=== PATIENT | female | born 1995 | race African-American/Black ===

== ENCOUNTER 2018-10-29 13:31 | Emergency (ER) | payer OTHER ==
--- NOTE | 2018-10-29 14:00 | ED Physician Documentation ---
PD HPI LOWER EXT INJURY - Stated complaint Stated Complaint: LT TOE PX - Chief complaint Chief Complaint: Ext Problem - History obtained from History obtained from: Patient - History of Present Illness PD HPI LOW EXT INJURY LOCATION: Left, Toe (4th and 5th) Type of injury: Fall Where injury occurred: Home Timing - onset: How many hours ago (2) Timing - duration: Hours (2) Timing - details: Abrupt onset Pain level max: 7 Pain level now: 5 Improved by: Rest Worsened by: Moving, Palpating Associated symptoms: No: Weakness, Numbness, Tingling, Swelling, Discolored Recently seen: Not recently seen Review of Systems : denies: Now EGA Neurologic: denies: Numbness PD PAST MEDICAL HISTORY - Past Medical History Past Medical History: No - Past Surgical History 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, 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 - Present Medications Home Medications: Ambulatory Orders Medication Instructions Recorded Confirmed Ibuprofen [Motrin] 800 mg PO Q8H PRN #30 tablet 10/29/18 - Allergies Allergies/Adverse Reactions: Allergies Allergy/AdvReac Type Severity Reaction Status Date / Time No Known Drug Allergies Allergy Verified 10/29/18 13:39 - Social History Does the pt smoke?: No Smoking Status: Never smoker Does the pt drink ETOH?: Yes Does the pt have substance abuse?: No - Immunizations Immunizations are current?: Yes PD ED PE NORMAL - Vitals Vital signs reviewed: Yes - General General: Alert and oriented X 3, No acute distress, Well developed/nourished - HEENT HEENT: Moist mucous membranes - Neck Neck: Supple, no meningeal sign - Derm Derm: Warm and dry - Extremities Extremities: Other (Left foot - Tender to palpation over the left fourth and fifth toes. No swelling. Neurovascular intact. No deformity. Also mild tenderness over the distal aspect of the fourth and fifth metatarsals. Otherwise normal exam of the foot and ankle) - Neuro Neuro: Alert and oriented X 3 - Psych Psych: Normal mood, Normal affect Results - Vitals Vitals: Vital Signs - 24 hr 10/29/18 10/29/18 13:38 15:46 Temperature 36.9 C Heart Rate 74 90 Respiratory 16 16 Rate Blood Pressure 115/61 108/58 L O2 Saturation 100 98 Oxygen O2 Source Room air - Rads (name of study) Left foot x-ray Radiology: Prelim report reviewed, EMP read contemporaneously, See rad report (Subtle minimally displaced fifth proximal phalangeal fracture is seen with surrounding soft tissue swelling. ) PD MEDICAL DECISION MAKING - ED course Complexity details: reviewed results, considered differential, d/w patient ED course: 23-year-old female presents to the emergency department with a left fifth toe fracture. Discussed dalia taping versus postop shoe versus both. She elects for a postop shoe at this time. Patient counseled regarding signs and symptoms for which I believe and urgent re-evaluation would be necessary. Patient with good understanding of and agreement to plan and is comfortable going home at this time This document was made in part using voice recognition software. While efforts are made to proofread this document, sound alike and grammatical errors may occur. Departure - Departure Disposition: 01 Home, Self Care Clinical Impression: Fracture of fifth toe, left, closed Qualifiers: Encounter type: initial encounter Qualified Code(s): S92.502A - Displaced unspecified fracture of left lesser toe(s), initial encounter for closed fracture Condition: Good Instructions: ED Fx Toe Closed Follow-Up: YOAN YEPEZ MD [Primary Care Provider] - Within 1 week Prescriptions: Ibuprofen [Motrin] 800 mg PO Q8H PRN #30 tablet PRN Reason: PAIN &/OR FEVER Comments: You have a 5th toe fracture today. This will heal on it's own. Return if you worsen. Follow up with your doctor in 1 week for repeat evaluation. Discharge Date/Time: 10/29/18 15:45
--- NOTE | 2018-10-29 15:18 | XRAY Report ---
Reason: L 4th and 5th toe pain s/p fall Procedure Date: 10/29/2018 Accession Number: [id number] / [id number] Procedure: XR - Foot 3 View LT CPT Code: FULL RESULT: EXAM: LEFT FOOT RADIOGRAPHY EXAM DATE: 10/29/2018 02:28 PM. CLINICAL HISTORY: L 4th and 5th toe pain s/p fall. COMPARISON: None. TECHNIQUE: 3 views. FINDINGS: Bones: Subtl minimally displaced oblique fracture of the distal aspect of the fifth proximal phalanx is seen. No other fracture lines are noted. Joints: Normal. No subluxations. Soft Tissues: Soft tissue swelling seen in the fifth digit. IMPRESSION: 1. Subtle minimally displaced fifth proximal phalangeal fracture is seen with surrounding soft tissue swelling. [facility]
[2018-10-29] MEDS ORDERED: IBUPROFEN 800 MG TABLET PO STA (15:22)
[2018-10-29 15:47] VITALS: BP 108/58
== END 2018-10-29 15:45 | disposition home or self-care (01) ==
LOC: ED 13:31
DX: S92.512A Displaced fracture of proximal phalanx of left lesser toe(s), initial encounter for closed fracture (principal); W23.0XXA Caught, crushed, jammed, or pinched between moving objects, initial encounter; Y92.009 Unspecified place in unspecified non-institutional (private) residence as the place of occurrence of the external cause
CPT/HCPCS: 73630; 99282; 99284; A9270